=== PATIENT | female | born 1930 | race Caucasian/White ===

== ENCOUNTER 2017-07-19 10:52 | Outpatient (CLI) | payer MEDICARE ==
[~2017-07-19] VITALS: Ht 160 cm; Wt 77.6 kg
[2017-07-19] MEDS ORDERED: DEXAMETHASONE 10 MG/ML (DECADRON) 1 ML VIAL ONE (11:11)
[2017-07-19 11:53] VITALS: BP 137/67
[2017-07-19 12:19] VITALS: BP 112/85
[2017-07-19 12:53] VITALS: BP 139/96
== END 2017-07-19 12:21 | disposition home or self-care (01) ==
LOC: CARD 10:52
PROVIDERS: ATTEND Pain Medicine Interventional Pain Medicine
DX: M54.12 Radiculopathy, cervical region (principal)
CPT/HCPCS: 62321

== ENCOUNTER → 2017-10-11 | Outpatient (CLI) | payer MEDICARE ==
[~2017-10-11] VITALS: Ht 160 cm; Wt 78.0 kg
[~2017-10-11] MED LIST: DEXAMETHASONE 10 MG/ML (DECADRON) 1 ML VIAL ONE
[2017-10-11 12:08] VITALS: BP 126/77
[2017-10-11 13:00] VITALS: BP 133/69
--- NOTE | 2017-10-23 12:15 | OPERATIVE REPORT ---
DATE OF SERVICE: 10/11/2017 DIAGNOSES: 1. Cervical radiculopathy. 2. Thoracic pain. PROCEDURE: Fluoroscopic guidance of thoracic epidural steroid injection, T1-T2. PROCEDURE IN DETAIL: After obtaining informed consent from the patient, the patient's chart was reviewed. The patient was then brought to the procedure room and placed in prone position, timeout was performed. The upper back was prepped with antiseptic solution and under fluoro guidance, patient's T1-T2 region was identified. The T1-T2 vertebral body was identified with fluoro guidance and approximately 2 mL of 1.5% lidocaine solution was used to anesthetize the skin down to the pedicle and under fluoro guidance using a 22-guage 3-1/2 inch spinal needle, this tract was anesthetized all way from the pedicle down to the intralaminar space in between T1-T2. After this tract was anesthetized, then a 20-guage Tuohy was used and involved the same tract. Using a loss of resistance syringe, the Tuohy was then directed into the epidural space under fluoro guidance. Upon obtaining loss of resistance, the syringe was exchanged for a syringe containing radiopaque dye and secondary identification of the epidural space was then obtained. At this point, the syringe was then exchanged for a syringe containing 10 mL of dexamethasone and this was injected into the epidural space, washout was identified under fluoroscopy. Needle was then flushed with the normal saline from the loss of resistance, approximately 0.5 mL and then needle removed. Bandages were applied to all procedure sites. The patient tolerated procedure well and was taken to the recovery room in stable condition. COMPLICATIONS: None. Job ID: [id number] DocumentID: [id number] Dictated Date: 10/11/2017 13:01:43 Income Tax Manager Date: 10/11/2017 20:36:08 Dictated By: ISRRAEL MILLARD DO <Dictated by ISRRAEL MILLARD DO> <Electronically signed by ISRRAEL MILLARD DO> 10/17/17 0818
== END ==
LOC: CARD 11:42
PROVIDERS: ATTEND Pain Medicine Interventional Pain Medicine
DX: M54.12 Radiculopathy, cervical region (principal)
CPT/HCPCS: 62321

== ENCOUNTER 2017-12-06 12:49 | Outpatient (CLI) | payer MEDICARE ==
[~2017-12-06] VITALS: Ht 160 cm; Wt 78.0 kg
[2017-12-06] MEDS ORDERED: methylPREDNISolone 80 MG/ML (DEPO MEDROL) VIAL ONE (13:07)
[2017-12-06 13:19] VITALS: BP 126/64
[2017-12-06 13:45] VITALS: BP 121/56
--- NOTE | 2017-12-06 17:04 | OPERATIVE REPORT ---
DATE OF SERVICE: 12/06/2017 DIAGNOSIS: Cervical radiculopathy. OPERATIVE PROCEDURE: Interlaminar epidural steroid injection. ANESTHESIA: Propofol. COMPLICATIONS: None. CLINICAL SURGICAL COURSE: After being placed in the prone position upon a procedure table, we then administered Propofol for anesthesia. The area overlying the T1-T2 area was identified under fluoroscopy. The skin overlying the area was prepped with Betadine. The skin and the deep structures were anesthetized with approximately 5 mL of 1% Lidocaine. A 25 gauge spinal needle was then inserted and directed down to the lamina under direct fluoroscopy guidance. It was then worked into the ligamentum flavum. Using a loss of resistance syringe, we entered the epidural space. Approximately 1.0 mL of contrast dye was injected. Proximal and distal spread was noted. This indicated that we were in the epidural space. No vascular uptake was noted. Finally, 8.0 mg of Dexamethasone diluted in 3 mm of preservation free saline was injected and washed out the contrast under fluoroscopy. No blood, CSF or paresthesia was noted during the procedure. The patient will be released home without any complications. Job ID: [id number] DocumentID: [id number] Dictated Date: 12/06/2017 13:45:12 Buggy Runner Date: 12/06/2017 17:04:43 Dictated By: ISRRAEL MILLARD DO
== END 2017-12-06 14:00 | disposition home or self-care (01) ==
LOC: CARD 12:49
PROVIDERS: ATTEND Pain Medicine Interventional Pain Medicine
DX: M54.14 Radiculopathy, thoracic region (principal)
CPT/HCPCS: 62321